=== PATIENT | female | born 1980 | race Caucasian/White ===

== ENCOUNTER → 2020-08-27 11:10 | Outpatient (BNVA) | payer SELFPAY | PROVIDERS: Family Provider Family Medicine; Visit Provider Nurse Practitioner Family | DX: Z00.00 Encounter for general adult medical examination without abnormal findings (principal); Z13.1 Encounter for screening for diabetes mellitus; Z13.220 Encounter for screening for lipoid disorders | CPT/HCPCS: 80053; 80061 ==

== ENCOUNTER → 2020-10-23 08:22 | Outpatient (BNVA) | payer SELFPAY | PROVIDERS: Family Provider Family Medicine; Visit Provider Nurse Practitioner Family | DX: E78.00 Pure hypercholesterolemia, unspecified (principal); E78.5 Hyperlipidemia, unspecified | CPT/HCPCS: 80061 ==

== ENCOUNTER → 2021-08-20 09:02 | Outpatient (BNVA) | payer OTHER, SELFPAY | PROVIDERS: Family Provider Family Medicine; PCP Nurse Practitioner Family; Visit Provider Nurse Practitioner Family | DX: R00.2 Palpitations (principal); R00.0 Tachycardia, unspecified; E78.2 Mixed hyperlipidemia | CPT/HCPCS: 80053; 80061; 84443 ==

== ENCOUNTER → 2021-09-10 08:22 | Outpatient (BNVA) | payer OTHER, SELFPAY | PROVIDERS: Family Provider Family Medicine; PCP Nurse Practitioner Family; Visit Provider Internal Medicine | DX: E05.90 Thyrotoxicosis, unspecified without thyrotoxic crisis or storm (principal); E78.49 Other hyperlipidemia | CPT/HCPCS: 83516; 84439; 84443; 84480; 86376; 86800 ==

== ENCOUNTER → 2021-11-14 11:27 | Outpatient (BNVA) | payer OTHER, SELFPAY | PROVIDERS: Family Provider Family Medicine; PCP Nurse Practitioner Family; Visit Provider Internal Medicine | DX: E05.90 Thyrotoxicosis, unspecified without thyrotoxic crisis or storm (principal) | CPT/HCPCS: 84439; 84443; 84480 ==

== ENCOUNTER → 2022-01-17 08:07 | Outpatient (BNVA) | payer OTHER, SELFPAY | PROVIDERS: Family Provider Family Medicine; PCP Nurse Practitioner Family; Visit Provider Internal Medicine | DX: E05.00 Thyrotoxicosis with diffuse goiter without thyrotoxic crisis or storm (principal) | CPT/HCPCS: 84439; 84443; 84480 ==

== ENCOUNTER 2022-03-05 11:52 | Outpatient (CLI) | payer OTHER, SELFPAY ==
--- NOTE | 2022-03-05 12:00 | US_ITS ---
WS: [id number] THYROID ULTRASOUND HISTORY: E05.90 - Thyrotoxicosis, Graves' disease. COMPARISON: None available. Right lobe: 1.3 cm x 1.3 cm x 4.4 cm (w x ap x l). Volume: 4.0 cm3. Normal size and echotexture. No significant are dominant nodules are present. Left lobe: 1.4 cm x 1.2 cm x 4.3 cm (w x ap x l). Volume: 3.7 cm3. Normal size with mild echotexture changes centrally. Very minimal heterogeneity but no discrete mass. No significant or dominant nodules are present. Isthmus: 0.2 cm. US/US thyroid [id number] IMPRESSION: Unremarkable thyroid ultrasound. No mass. No increased vascularity.
== END 2022-03-05 11:53 | disposition home or self-care (01) ==
PROVIDERS: PCP Nurse Practitioner Family; Visit Provider Nurse Practitioner Family
DX: E05.90 Thyrotoxicosis, unspecified without thyrotoxic crisis or storm (principal)
CPT/HCPCS: 76536

== ENCOUNTER → 2022-03-24 08:03 | Outpatient (BNVA) | payer OTHER, SELFPAY | PROVIDERS: PCP Nurse Practitioner Family; Visit Provider Internal Medicine | DX: E05.00 Thyrotoxicosis with diffuse goiter without thyrotoxic crisis or storm (principal); E78.49 Other hyperlipidemia | CPT/HCPCS: 80061; 84439; 84443; 84480 ==

== ENCOUNTER → 2022-06-25 08:39 | Outpatient (BNVA) | payer OTHER, SELFPAY | PROVIDERS: PCP Nurse Practitioner Family; Visit Provider Internal Medicine | DX: E05.00 Thyrotoxicosis with diffuse goiter without thyrotoxic crisis or storm (principal); E78.49 Other hyperlipidemia | CPT/HCPCS: 80061; 82550; 84439; 84443; 84480 ==

== ENCOUNTER → 2022-07-07 08:45 | Outpatient (BNVA) | payer OTHER, SELFPAY | PROVIDERS: PCP Nurse Practitioner Family; Visit Provider Nurse Practitioner Family | DX: E78.2 Mixed hyperlipidemia (principal) | CPT/HCPCS: 80053; 80061 ==

== ENCOUNTER → 2022-10-27 07:58 | Outpatient (BNVA) | payer OTHER, SELFPAY | PROVIDERS: PCP Nurse Practitioner Family; Visit Provider Internal Medicine | DX: E78.49 Other hyperlipidemia (principal); E78.5 Hyperlipidemia, unspecified; E05.00 Thyrotoxicosis with diffuse goiter without thyrotoxic crisis or storm | CPT/HCPCS: 80061; 82306; 83735; 84439; 84443; 84480 ==

== ENCOUNTER → 2023-04-27 08:08 | Outpatient (BNVA) | payer OTHER, SELFPAY | PROVIDERS: PCP Nurse Practitioner Family; Visit Provider Internal Medicine | DX: E05.00 Thyrotoxicosis with diffuse goiter without thyrotoxic crisis or storm (principal); E78.49 Other hyperlipidemia; E78.5 Hyperlipidemia, unspecified; M54.2 Cervicalgia; R29.898 Other symptoms and signs involving the musculoskeletal system | CPT/HCPCS: 80061; 84439; 84443; 84480 ==

== ENCOUNTER → 2023-06-02 14:38 | Outpatient (BNVA) | payer SELFPAY | PROVIDERS: PCP Nurse Practitioner Family; Visit Provider Nurse Practitioner Family | DX: J32.9 Chronic sinusitis, unspecified (principal) | CPT/HCPCS: 87400; 87426 ==

== ENCOUNTER → 2023-10-06 11:00 | Outpatient (BNVA) | payer OTHER, SELFPAY | PROVIDERS: PCP Nurse Practitioner Family; Visit Provider Internal Medicine | DX: Z79.899 Other long term (current) drug therapy (principal); E78.5 Hyperlipidemia, unspecified; E05.00 Thyrotoxicosis with diffuse goiter without thyrotoxic crisis or storm | CPT/HCPCS: 80076; 84439; 84443 ==

== ENCOUNTER → 2023-10-21 08:06 | Outpatient (BNVA) | payer OTHER, SELFPAY | PROVIDERS: PCP Nurse Practitioner Family; Visit Provider Internal Medicine | DX: E78.49 Other hyperlipidemia (principal); E80.6 Other disorders of bilirubin metabolism; E05.90 Thyrotoxicosis, unspecified without thyrotoxic crisis or storm | CPT/HCPCS: 80053 ==

== ENCOUNTER → 2023-12-14 11:44 | Outpatient (BNVA) | payer OTHER, SELFPAY | PROVIDERS: PCP Nurse Practitioner Family; Visit Provider Nurse Practitioner Family | DX: R53.83 Other fatigue (principal); R22.1 Localized swelling, mass and lump, neck | CPT/HCPCS: 82672; 83001; 84403 ==

== ENCOUNTER 2023-12-23 06:35 | Outpatient (CLI) | payer OTHER, SELFPAY ==
--- NOTE | 2023-12-23 06:45 | US_ITS ---
WS: [id number] ULTRASOUND SOFT TISSUES RIGHT anterior neck. HISTORY: R22.1 - Localized swelling, mass and lump, neck COMPARISON: None available. TECHNIQUE: 2-D and color Doppler imaging is submitted. Images submitted are labeled RIGHT anterior neck. Palpable mass corresponds to the RIGHT clavicular h ead as indicated by the cement mason. There is no increased vascularity. Osseous structures cannot be well evaluated by ultrasound. US/US soft tissue head neck [id number] IMPRESSION: 1. Palpable area corresponds to the region of the medial clavicular head. This needs to be further evaluated by CT. Ultrasound cannot evaluate osseous struct ures well. There is a large amount of shadowing obscuring detail. 2. Recommendation: Follow-up clavicular CT, noncontrast.
--- NOTE | 2023-12-23 07:02 | XRR_ITS ---
PROCEDURE INFORMATION: Exam: XR Right Clavicle, Complete Exam date and time: 12/23/2023 7:04 AM Age: 43 years old Clinical indication: Mass or lump; Shoulder; Right; Patient HX: Mass at the sternoclavicular joint. PT states she just noticed it within a month. Denies any pain; Additional info: R22.1 - localized swelling, mass and lump, neck TECHNIQUE: Imaging protocol: Radiologic exam of the right clavicle. Complete exam. Views: Any number of views. COMPARISON: No relevant prior studies available. FINDINGS: Bones/joints: Normal. Soft tissues: Normal. XR/[place] [id number] IMPRESSION: No acute findings.
== END 2023-12-23 06:36 | disposition home or self-care (01) ==
LOC: RAD 06:35
PROVIDERS: PCP Nurse Practitioner Family; Visit Provider Nurse Practitioner Family
DX: R22.1 Localized swelling, mass and lump, neck (principal); R93.89 Abnormal findings on diagnostic imaging of other specified body structures
CPT/HCPCS: 73000; 76536

== ENCOUNTER → 2024-07-06 07:46 | Outpatient (BNVA) | payer OTHER, SELFPAY | PROVIDERS: PCP Nurse Practitioner Family; Visit Provider Internal Medicine | DX: E78.49 Other hyperlipidemia (principal); E05.00 Thyrotoxicosis with diffuse goiter without thyrotoxic crisis or storm; E05.90 Thyrotoxicosis, unspecified without thyrotoxic crisis or storm; E80.6 Other disorders of bilirubin metabolism; R79.89 Other specified abnormal findings of blood chemistry | CPT/HCPCS: 80061; 84439; 84443; 84480 ==

== ENCOUNTER → 2024-09-01 11:09 | Outpatient (BNVA) | payer OTHER, SELFPAY | PROVIDERS: PCP Nurse Practitioner Family; Visit Provider Nurse Practitioner Family | DX: J11.1 Influenza due to unidentified influenza virus with other respiratory manifestations (principal) | CPT/HCPCS: 87400 ==

== ENCOUNTER → 2024-11-18 08:28 | Outpatient (BNVA) | payer SELFPAY | PROVIDERS: PCP Nurse Practitioner Family; Visit Provider Nurse Practitioner Family | DX: E78.2 Mixed hyperlipidemia (principal); I10 Essential (primary) hypertension; R53.83 Other fatigue | CPT/HCPCS: 80053; 80061; 83516; 84439; 84443; 84480; 85025; 87070; 87205 ==

== ENCOUNTER 2024-11-28 10:18 | Outpatient (CLI) | payer SELFPAY ==
--- NOTE | 2024-11-28 10:30 | US_ITS ---
WS: [id number] US pelv w/transvag [id number] HISTORY: N92.1 - Excessive and frequent menstruation with irregular menses. COMPARISON: None available. Uterus: 8.8 cm x 4.7 cm x 4.5 cm. Normal size anteverted uterus. No fibroid or mass. Endometrium: 0.7 cm. Normal. No mass or increased vascularity. Right ovary: 2.2 cm x 2.0 cm x 1.8 cm. Normal size and vascularity, no cystic or solid masses. Left ovary: 1.8 cm x 1.4 cm x 1.6 cm. Normal size and vascularity, no cystic or solid masses. Small follicles. No free fluid in the cul-de-sac. US/US pelv w/transvag [id number] IMPRESSION: 1. Normal endometrium. No mass or increased vascularity. 2. No ovarian mass. 3. No free fluid in the cul-de-sac.
== END 2024-11-28 10:19 | disposition home or self-care (01) ==
LOC: RAD 10:19
PROVIDERS: PCP Nurse Practitioner Family; Visit Provider Nurse Practitioner Family
DX: N92.1 Excessive and frequent menstruation with irregular cycle (principal)
CPT/HCPCS: 76830; 76856